=== PATIENT | male | born 1955 | race Caucasian/White ===

== ENCOUNTER 2018-11-24 13:31 | Emergency (ER) | payer OTHER ==
[~2018-11-24] VITALS: Ht 177.8 cm; Wt 81.6 kg
--- NOTE | ~2018-11-24 | EKG ---
[place], [place] ELECTROCARDIOGRAM REPORT NAME: CAM CAUSEY JR UNIT #: [id number] ROOM: DOCTOR: EPIPHANY DRAFT REPORT BIRTHDATE: [birth year] [facility] Test Date: 2018-11-24 Test Time: 15:06:08 Pat Name: CAM CAUSEY Department: Room: Gender: Portfolio Analyst: Angi Bridges : 1955 Requested By: ARYAN JESSICA Order Number: [id number] Reading MD: Fausto Reyes MD Measurements Intervals [place] Rate: 81 P: 36 OK: 188 QRS: 15 QRSD: 88 T: 46 QT: 365 QTc: 424 Interpretive Statements Sinus rhythm Compared to ECG 10/13/2018 21:52:42 No significant changes Electronically Signed On 11-25-2018 14:05:51 PDT by Fausto Reyes MD CM:EKGRPT:ELECTROCARDIOGRAM REPORT [id number] ARYAN LANDEROS DRAFT REPORT ARYAN MAYER
[~2018-11-24 13:31] MED LIST: AMOXICILLIN500 M2 PO; FLONASE ALLERG9.9 ML NAS; GLUCOPHAGE1000 MG PO; NICOTINE PATCH1 EAC2 TD; PREDNISONE20 M1 PO
[2018-11-24 15:04] LABS: BILIRUBIN NEGATIVE (NEGATIVE); BLOOD NEGATIVE (NEGATIVE); CLARITY CLEAR (CLEAR); COLOR YELLOW (YELLOW); GLUCOSE NEGATIVE (NEGATIVE); KETONE 1+ (NEGATIVE); LEUKO ESTERASE NEGATIVE (NEGATIVE); NITRITE NEGATIVE (NEGATIVE); SPECIFIC GRAVITY <= 1.005 (1.005-1.030); UROBILINOGEN 0.2 E.U./dl (0.2-1.0)
[2018-11-24 15:17] LABS: EPITHELIAL CELLS 0-2
[2018-11-24 15:23] LABS: BASO # 0.1 10*3/uL (0.0-0.1); BASO % 0.6 % (0.0-1.0); EOS # 0.1 10*3/uL (0.0-0.4); EOS % 1.7 % (1.0-4.0); HEMATOCRIT 44.3 % (42.0-52.0); HEMOGLOBIN 14.5 g/dl (14.0-18.0); LYMPH % 24.7 % (27.0-41.0); MEAN CELL VOLUME 95.9 fl (80.0-94.0); MEAN CORPUSCULAR HGB 31.4 pg (27.0-31.0); MEAN CORPUSCULAR HGB CONC 32.7 g/dl (33.0-37.0); MEAN PLATELET VOLUME 9.4 fl (9.6-12.3); MONO # 0.6 10*3/uL (0.1-1.0); MONO % 7.1 % (3.0-9.0); NEUT # 5.4 10*3/uL (2.3-7.9); NEUT % 65.7 % (47.0-73.0); PLATELET COUNT AUTOMATED 330 10*3/uL (130-400); RED BLOOD COUNT 4.62 10*6/uL (4.50-5.90); RED CELL DISTRI WIDTH 12.5 % (0-14.5); WHITE BLOOD COUNT 8.2 10*3/uL (4.8-10.8)
[2018-11-24 15:34] LABS: ACT PARTIAL THROMBO TIME 27.5 SECONDS (20.0-32.1); INTERNATIONAL NORM RATIO 0.9 (2.0-3.5)
[2018-11-24 15:38] LABS: ALBUMIN 4.1 gm/dl (3.1-4.5); ALKALINE PHOSPHATASE 81 U/L (45-117); BUN 7 mg/dl (7-24); CHLORIDE 107 mmol/L (98-107); CREATININE 0.78 mg/dL (0.70-1.30); LIPASE 101 U/L (73-393); POTASSIUM 4.1 mmol/L (3.5-5.1); SGOT/AST 18 IU/L (3-35); SGPT/ALT 26 U/L (12-78); SODIUM 143 mmol/L (136-145); TOTAL PROTEIN 7.5 gm/dL (6.4-8.2)
[2018-11-24 15:45] LABS: TROPONIN I < 0.015 ng/ml (<0.045)
== END 2018-11-24 16:42 | disposition home or self-care (01) ==
LOC: ED 13:31
PROVIDERS: Physician Assistant
DX: H53.2 Diplopia (principal); E11.9 Type 2 diabetes mellitus without complications; F17.200 Nicotine dependence, unspecified, uncomplicated

== ENCOUNTER → 2021-01-12 | Outpatient (CLI) | payer OTHER | END | disposition home or self-care (01) | LOC: US 08:19 | PROVIDERS: ATTEND Family Medicine | DX: Z13.6 Encounter for screening for cardiovascular disorders (principal) ==